=== PATIENT | female | born 1965 | race Caucasian/White ===

== ENCOUNTER 2021-06-20 16:02 | Emergency (ER) | payer OTHER ==
[~2021-06-20 16:02] MED LIST: ONDANSETRON ODT8 MG SL; SKELAXIN800 MG PO; VOLTAREN **OUT75 MG PO
[2021-06-20 18:36] LABS: BASOPHIL 0.7 % (0-2); HGB 13.1 g/dl (12.5-16.0); LYMPHOCYTE 25.7 % (15-48); MCH 29.6 pg (25.0-31.0); MCHC 29.8 g/dL (32.0-36.0); MCV 99.3 fL (78.0-100.0); MONOCYTE 7.2 % (0-12); MPV 9.7 fL (6.0-9.5); NEUTROPHIL 63.8 % (41-80); NRBC 0; PLT 276 K/uL (150-400); RBC 4.43 M/uL (4.20-5.40); RDW 13.9 % (11.5-14.0); WBC 11.3 K/uL (4.0-10.5)
[2021-06-20 18:58] LABS: CREATININE 1.08 mg/dL (0.51-0.95); POTASSIUM 4.2 mmol/L (3.5-5.1)
== END 2021-06-20 20:54 | disposition home or self-care (01) ==
LOC: FER 16:02
PROVIDERS: Nurse Practitioner Family
DX: M25.561 Pain in right knee (principal); M79.661 Pain in right lower leg; I10 Essential (primary) hypertension; I25.2 Old myocardial infarction; J44.9 Chronic obstructive pulmonary disease, unspecified; Z88.8 Allergy status to other drugs, medicaments and biological substances; Z91.041 Radiographic dye allergy status
CPT/HCPCS: 36415; 80048; 85025; 93971

== ENCOUNTER 2022-05-30 15:36 | Emergency (ER) | payer OTHER ==
[2022-05-30 16:38] LABS: BASOPHIL 0.8 % (0-2); EOSINOPHIL 1.8 % (0-5); HCT 42.4 % (37.0-47.0); HGB 13.4 g/dl (12.5-16.0); MCH 30.5 pg (25.0-31.0); MCHC 31.6 g/dL (32.0-36.0); MCV 96.4 fL (78.0-100.0); MONOCYTE 10.3 % (0-12); MPV 10.1 fL (6.0-9.5); NEUTROPHIL 58.4 % (41-80); NRBC 0; PLT 369 K/uL (150-400); RDW 14.1 % (11.5-14.0); WBC 9.6 K/uL (4.0-10.5)
[2022-05-30 16:42] LABS: INR 0.95 (0.9-1.2); PROTHROMBIN TIME 12.4 SECONDS (11.9-13.9)
[2022-05-30 16:52] LABS: ALBUMIN 3.8 g/dL (3.4-5.0); BILIRUBIN - TOTAL 0.3 mg/dL (0.2-1.0); BUN/CREAT RATIO (CALC) 13.3 RATIO; CREATININE 1.43 mg/dL (0.51-0.95); GLOBULIN (CALCULATION) 3.3 g/dL; POTASSIUM 3.2 mmol/L (3.5-5.1); TOTAL PROTEIN 7.1 g/dL (6.4-8.2)
[2022-05-30 17:50] LABS: INFLUENZA A NAA NEGATIVE (NEGATIVE)
[2022-05-30 17:52] LABS: CORONAVIRUS 2019 SARS-COV-2 POSITIVE (NEGATIVE)
[2022-05-30] MEDS ORDERED: ONDANSETRON ODT4 MG PO (18:53)
[2022-05-30] MEDS ORDERED: PREDNISONE 20MG20 MG PO (18:53)
[2022-05-30] MEDS ORDERED: PAXLOVID 150-11 EACH PO (18:55)
== END 2022-05-30 19:38 | disposition home or self-care (01) ==
LOC: FER 15:36
PROVIDERS: Internal Medicine
DX: U07.1 COVID-19 (principal); R07.89 Other chest pain; N17.9 Acute kidney failure, unspecified; I25.10 Atherosclerotic heart disease of native coronary artery without angina pectoris; I10 Essential (primary) hypertension; J45.909 Unspecified asthma, uncomplicated; Z88.2 Allergy status to sulfonamides
CPT/HCPCS: 36415; 71045; 80053; 84484; 85025; 85610; 85730; 93005; J2405; U0002